=== PATIENT | male | born 1995 | race African-American/Black ===

== ENCOUNTER 2019-10-26 15:20 | Emergency (ER) | payer OTHER ==
[~2019-10-26] VITALS: Ht 172.7 cm; Wt 79.1 kg
[2019-10-26] MEDS ORDERED: LIDOCAINE 5% (LIDODERM) PATCH TD ONE (16:30)
[2019-10-26 16:39] LABS: APPEARANCE, URINE CLEAR (CLEAR); BACTERIA, URINE AUTO NEGATIVE (NEGATIVE); BILIRUBIN, URINE AUTO NEGATIVE (NEGATIVE); BLOOD, URINE BLOOD NEGATIVE (NEGATIVE); COLOR, URINE YELLOW (YELLOW); GLUCOSE, URINE (UA) AUTO NEGATIVE (NEGATIVE); KETONE, URINE AUTO NEGATIVE (NEGATIVE); LEUKOCYTE ESTERASE, URINE AUTO NEGATIVE (NEGATIVE); MUCUS, URINE SMALL (NEGATIVE); NITRITE, URINE AUTO NEGATIVE (NEGATIVE); PROTEIN, URINE AUTO NEGATIVE (NEGATIVE); RBC, URINE AUTO 3 /HPF (0-3); SPECIFIC GRAVITY URINE AUTO 1.021 (1.002-1.035); SQUAMOUS EPITHELIAL CELL UR AU 0 /HPF (0-6); UROBILINOGEN, URINE AUTO 0.2 mg/dL (0.0-2.0); WBC, URINE AUTO 1 /HPF (0-3)
--- NOTE | 2019-10-26 17:17 | REPVR ---
PROCEDURE INFORMATION: Exam: US Abdomen Limited Exam date and time: 10/26/2019 5:07 PM Age: 23 years old Clinical indication: Abdominal pain; Acute TECHNIQUE: Imaging protocol: Real-time ultrasound of the abdomen with image documentation. Examination is focused on the region of clinical interest. COMPARISON: No relevant prior studies available. FINDINGS: Four quadrants: Four quadrant scan performed. No evidence of ascites demonstrated. IMPRESSION: Four quadrant scan performed. No evidence of ascites demonstrated. Electronically signed by: Vinicius Garcia On 10/26/2019 17:17:02 PM
[2019-10-26] MEDS ORDERED: IBUP-1022 PO (17:47)
[2019-10-26 17:52] VITALS: BP 119/75
--- NOTE | 2019-10-26 17:54 | REP ---
HISTORY: Pain after trauma. FINDINGS: Five views of the lumbosacral spine show no acute fracture, dislocation or subluxation. The intervertebral disc spaces are symmetric and well maintained. There is no spondylolisthesis. The pedicles are intact bilaterally and there is no destructive osseous lesions. IMPRESSION: Unremarkable lumbosacral spine series. Electronically Signed by José Luis Frausto DO 10/26/2019 05:59 P
[2019-10-26] MEDS ORDERED: **NOTE PATIENT COMMENT** MISC XX SCH (21:00)
== END 2019-10-26 18:00 | disposition home or self-care (01) ==
LOC: M ED 15:20
DX: S30.0XXA Contusion of lower back and pelvis, initial encounter (principal); W20.8XXA Other cause of strike by thrown, projected or falling object, initial encounter; Y92.9 Unspecified place or not applicable; F17.210 Nicotine dependence, cigarettes, uncomplicated